=== PATIENT | male | born 1945 | race Caucasian/White ===

== ENCOUNTER 2018-08-20 15:53 | Inpatient (IN) | payer MEDICARE ==
[~2018-08-20] VITALS: Ht 182.9 cm; Wt 67.9 kg
[~2018-08-20 15:53] MED LIST: AMLO-150 PO; AMOX1TAB64 PO; ASCO500C2 PO; ASPI-496 PO; ATOR20TA37 PO; CARB200T4 PO; CLOP75TA PO; DOXY100T PO; FENO134C PO; FERR240T2 PO; FINA5TAB4 PO; LEVE500T8 PO; MAGN400T7 PO; MEMA10TA PO; METO25TA35 PO; POLY17PO5 PO; TAMS-11 PO; THERA; VITA1TAB19 PO
--- NOTE | 2018-08-20 16:40 | NUR ---
pt in room at this time. axox1 to self. cardiac, nibp, and o2 monitoring in place. urine sample at bedside. awaiting md anderson at this time.
[2018-08-20] MEDS ORDERED: SODIUM CHLORIDE FLUSH 10ML SYR IVF ONE (17:00)
[2018-08-20 17:02] LABS: MICROSCOPIC AUTO
[2018-08-20 17:08] LABS: CULTURE INDICATED? NO
[2018-08-20 17:42] LABS: BASOPHILS # (AUTO) 0.01 x10^3/uL (0-0.1); BASOPHILS % (AUTO) 0 % (0-1); EOSINOPHILS % (AUTO) 0 % (1-7); LYMPHOCYTES # (AUTO) 0.51 x10^3/uL (1-3.4); LYMPHOCYTES % (AUTO) 4 % (22-44); MD NO; MEAN CORPUSCULAR HEMOGLOBIN 29.8 pg (27.5-34.5); MEAN CORPUSCULAR HGB CONC 33.5 g/dL (33.2-36.2); MEAN CORPUSCULAR VOLUME 89.1 fL (81-97); MEAN PLATELET VOLUME 7.7 fL (7.4-10.4); MONOCYTES # (AUTO) 0.71 x10^3/uL (0.2-0.8); MONOCYTES % (AUTO) 6 % (2-9); NEUTROPHILS # (AUTO) 11.71 x10^3/uL (1.8-6.8); NEUTROPHILS % (AUTO) 91 % (42-75); PLATELET COUNT 287 x10^3/uL (130-400); RED BLOOD COUNT 4.43 x10^6/uL (4.38-5.82); RED CELL DISTRIBUTION WIDTH 16.3 % (9.4-14.8)
[2018-08-20 17:46] LABS: ALANINE AMINOTRANSFERASE 32 U/L (12-78); ALBUMIN 4.1 g/dL (3.4-5.0); ANION GAP 9 mmol/L (5-15); CALCIUM 8.9 mg/dL (8.5-10.1); CHLORIDE 95 mmol/L (98-107); CREATININE 0.88 mg/dL (0.7-1.3)
[2018-08-20 17:51] LABS: ALKALINE PHOSPHATASE 196 U/L (45-117); BILIRUBIN,TOTAL 0.5 mg/dL (0.2-1.0); T4 (THYROXINE) 8.3 mcg/dL (4.5-12.1); TOTAL PROTEIN 8.6 g/dL (6.4-8.2); TROPONIN I 0.051 ng/mL (0.000-0.045)
[2018-08-20 17:56] LABS: THYROID STIMULATING HORMONE 0.602 mIU/L (0.358-3.740)
--- NOTE | 2018-08-20 18:05 | NUR ---
pt demanding to walk to the restroom and got out of bed dispite advise. pt ambulated to bathroom with 2 person full assist. in restroom pt pulled iv out.iv dc'd tip intact.
[2018-08-20] MEDS ORDERED: ASPIRIN 81 MG TABLET CHEW PO ONE (18:30)
--- NOTE | 2018-08-20 18:36 | NUR ---
TASK RN: POC IS ADMIT. TECH AT BEDSIDE TO PLACE PIV.
[2018-08-20] MEDS ORDERED: ASPIRIN 81 MG TABLET CHEW ONE (18:38)
--- NOTE | 2018-08-20 18:42 | NUR ---
ASA ADMINISTERED PER ORDER. BP/SPO2/ECG MONITORING IN PLACE. NSR ON MONITOR. PT AWAKE/ALERT, FOLLOWS BASIC COMMANDS. PT CALM AND COOPERATIVE WITH CARE.
[2018-08-20] MEDS ORDERED: ONDANSETRON ODT 4 MG PO PRN (20:00)
[2018-08-20] MEDS ORDERED: ACETAMINOPHEN 325 MG TABLET PO PRN (20:00)
[2018-08-20] MEDS ORDERED: BISACODYL 10 MG SUPP PR PRN (20:00)
[2018-08-20] MEDS ORDERED: POLYETHYLENE GLYCOL 17 GM PACKET PO PRN (20:00)
[2018-08-20 21:00] VITALS: BP 150/68
[2018-08-20] MEDS: MAGNESIUM OXIDE 400 MG TABLET PO SCH (22:54)
[2018-08-20] MEDS: LEVETIRACETAM 500 MG TABLET PO SCH (22:54)
[2018-08-20] MEDS: ATORVASTATIN 20 MG TABLET PO SCH (22:54)
[2018-08-20] MEDS: CARBAMAZEPINE 200 MG TABLET PO SCH (22:54)
[2018-08-20] MEDS: SODIUM CHLORIDE 0.9% 1,000 ML IV SCH (22:55)
[2018-08-20 23:41] LABS: TROPONIN I 0.083 ng/mL (0.000-0.045)
[2018-08-21 04:45] LABS: BASOPHILS # (AUTO) 0.03 x10^3/uL (0-0.1); BASOPHILS % (AUTO) 0 % (0-1); EOSINOPHILS # (AUTO) 0.01 x10^3/uL (0-0.4); EOSINOPHILS % (AUTO) 0 % (1-7); LYMPHOCYTES # (AUTO) 0.82 x10^3/uL (1-3.4); LYMPHOCYTES % (AUTO) 10 % (22-44); MD NO; MEAN CORPUSCULAR HEMOGLOBIN 30.1 pg (27.5-34.5); MEAN CORPUSCULAR HGB CONC 33.8 g/dL (33.2-36.2); MEAN CORPUSCULAR VOLUME 89.2 fL (81-97); MEAN PLATELET VOLUME 7.4 fL (7.4-10.4); MONOCYTES # (AUTO) 0.79 x10^3/uL (0.2-0.8); MONOCYTES % (AUTO) 10 % (2-9); NEUTROPHILS # (AUTO) 6.42 x10^3/uL (1.8-6.8); NEUTROPHILS % (AUTO) 80 % (42-75); PLATELET COUNT 228 x10^3/uL (130-400); RED BLOOD COUNT 3.65 x10^6/uL (4.38-5.82); RED CELL DISTRIBUTION WIDTH 16.5 % (9.4-14.8)
[2018-08-21 04:50] LABS: ALANINE AMINOTRANSFERASE 23 U/L (12-78); ALBUMIN 3.1 g/dL (3.4-5.0); ANION GAP 9 mmol/L (5-15); CALCIUM 8.3 mg/dL (8.5-10.1); CHLORIDE 100 mmol/L (98-107); CREATININE 0.74 mg/dL (0.7-1.3)
[2018-08-21 04:54] LABS: ALKALINE PHOSPHATASE 134 U/L (45-117); BILIRUBIN,TOTAL 0.4 mg/dL (0.2-1.0); TOTAL PROTEIN 6.5 g/dL (6.4-8.2); TROPONIN I 0.058 ng/mL (0.000-0.045)
[2018-08-21 05:33] VITALS: BP 148/61
[2018-08-21] MEDS ORDERED: FINASTERIDE 5 MG TABLET ONE (05:52)
[2018-08-21 06:29] VITALS: BP 147/69
[2018-08-21] MEDS: FINASTERIDE 5 MG TABLET PO SCH (06:36)
[2018-08-21] MEDS: SENNA/DOCUSATE TABLET PO SCH (09:00)
[2018-08-21] MEDS: SODIUM CHLORIDE 0.9% 1,000 ML IV SCH ×2 (09:05→21:38)
[2018-08-21] MEDS: TAMSULOSIN 0.4 MG CAP.ER.24H PO SCH (10:37)
[2018-08-21] MEDS: LEVETIRACETAM 500 MG TABLET PO SCH ×2 (10:37→21:35)
[2018-08-21] MEDS: MAGNESIUM OXIDE 400 MG TABLET PO SCH ×2 (10:37→21:35)
[2018-08-21] MEDS: MULTIVITS,STRESS FORMULA 1 TABLET PO SCH (10:37)
[2018-08-21] MEDS: AMLODIPINE 5 MG TABLET PO SCH (10:37)
[2018-08-21] MEDS: MEMANTINE 10MG TABLET PO SCH (10:37)
[2018-08-21] MEDS: CLOPIDOGREL 75 MG TABLET PO SCH (10:37)
[2018-08-21] MEDS: ASPIRIN 81 MG TABLET EC PO SCH (10:37)
[2018-08-21] MEDS: ASCORBIC ACID 500 MG TABLET PO SCH (10:38)
[2018-08-21] MEDS: CARBAMAZEPINE 200 MG TABLET PO SCH ×3 (10:46→21:35)
[2018-08-21 12:42] VITALS: BP 146/63
[2018-08-21 19:55] VITALS: BP 128/55
[2018-08-21] MEDS: ATORVASTATIN 20 MG TABLET PO SCH (21:35)
[2018-08-22 02:00] VITALS: BP 146/68
[2018-08-22 05:48] LABS: BASOPHILS # (AUTO) 0.03 x10^3/uL (0-0.1); BASOPHILS % (AUTO) 1 % (0-1); EOSINOPHILS # (AUTO) 0.17 x10^3/uL (0-0.4); EOSINOPHILS % (AUTO) 4 % (1-7); LYMPHOCYTES # (AUTO) 0.97 x10^3/uL (1-3.4); LYMPHOCYTES % (AUTO) 25 % (22-44); MD NO; MEAN CORPUSCULAR HEMOGLOBIN 30.1 pg (27.5-34.5); MEAN CORPUSCULAR VOLUME 88.6 fL (81-97); MEAN PLATELET VOLUME 7.6 fL (7.4-10.4); MONOCYTES # (AUTO) 0.64 x10^3/uL (0.2-0.8); MONOCYTES % (AUTO) 16 % (2-9); NEUTROPHILS # (AUTO) 2.16 x10^3/uL (1.8-6.8); NEUTROPHILS % (AUTO) 55 % (42-75); PLATELET COUNT 212 x10^3/uL (130-400); RED BLOOD COUNT 3.55 x10^6/uL (4.38-5.82); RED CELL DISTRIBUTION WIDTH 16.5 % (9.4-14.8)
[2018-08-22 05:55] LABS: ANION GAP 8 mmol/L (5-15); CALCIUM 8.1 mg/dL (8.5-10.1); CHLORIDE 104 mmol/L (98-107)
[2018-08-22 05:56] LABS: CREATININE 0.53 mg/dL (0.7-1.3)
[2018-08-22 07:15] VITALS: BP 152/76
[2018-08-22] MEDS: SENNA/DOCUSATE TABLET PO SCH (09:00)
[2018-08-22] MEDS: TAMSULOSIN 0.4 MG CAP.ER.24H PO SCH (11:48)
[2018-08-22] MEDS: MAGNESIUM OXIDE 400 MG TABLET PO SCH ×2 (11:48→20:20)
[2018-08-22] MEDS: FINASTERIDE 5 MG TABLET PO SCH (11:48)
[2018-08-22] MEDS: ASCORBIC ACID 500 MG TABLET PO SCH (11:48)
[2018-08-22] MEDS: ASPIRIN 81 MG TABLET EC PO SCH (11:48)
[2018-08-22] MEDS: MULTIVITS,STRESS FORMULA 1 TABLET PO SCH (11:48)
[2018-08-22] MEDS: CLOPIDOGREL 75 MG TABLET PO SCH (11:49)
[2018-08-22] MEDS: LEVETIRACETAM 500 MG TABLET PO SCH ×2 (11:49→20:20)
[2018-08-22] MEDS: MEMANTINE 10MG TABLET PO SCH (11:49)
[2018-08-22] MEDS: CARBAMAZEPINE 200 MG TABLET PO SCH ×3 (11:49→20:20)
[2018-08-22] MEDS: AMLODIPINE 5 MG TABLET PO SCH (11:50)
[2018-08-22 13:51] VITALS: BP 154/61
[2018-08-22 19:23] VITALS: BP 145/61
[2018-08-22] MEDS: ATORVASTATIN 20 MG TABLET PO SCH (20:20)
[2018-08-23 01:09] VITALS: BP 155/62
[2018-08-23 05:05] LABS: BASOPHILS # (AUTO) 0.03 x10^3/uL (0-0.1); BASOPHILS % (AUTO) 1 % (0-1); EOSINOPHILS # (AUTO) 0.21 x10^3/uL (0-0.4); EOSINOPHILS % (AUTO) 5 % (1-7); LYMPHOCYTES # (AUTO) 0.98 x10^3/uL (1-3.4); LYMPHOCYTES % (AUTO) 24 % (22-44); MD NO; MEAN CORPUSCULAR HEMOGLOBIN 30.3 pg (27.5-34.5); MEAN CORPUSCULAR VOLUME 89.3 fL (81-97); MEAN PLATELET VOLUME 7.7 fL (7.4-10.4); MONOCYTES # (AUTO) 0.46 x10^3/uL (0.2-0.8); MONOCYTES % (AUTO) 11 % (2-9); NEUTROPHILS # (AUTO) 2.36 x10^3/uL (1.8-6.8); NEUTROPHILS % (AUTO) 58 % (42-75); PLATELET COUNT 223 x10^3/uL (130-400); RED BLOOD COUNT 3.51 x10^6/uL (4.38-5.82); RED CELL DISTRIBUTION WIDTH 16.4 % (9.4-14.8)
[2018-08-23 05:12] LABS: ANION GAP 9 mmol/L (5-15); CALCIUM 8.5 mg/dL (8.5-10.1); CHLORIDE 103 mmol/L (98-107)
[2018-08-23 06:43] VITALS: BP 158/62
[2018-08-23] MEDS: SENNA/DOCUSATE TABLET PO SCH (08:08)
[2018-08-23] MEDS: FINASTERIDE 5 MG TABLET PO SCH (09:32)
[2018-08-23] MEDS: ASPIRIN 81 MG TABLET EC PO SCH (09:32)
[2018-08-23] MEDS: AMLODIPINE 5 MG TABLET PO SCH (09:32)
[2018-08-23] MEDS: MULTIVITS,STRESS FORMULA 1 TABLET PO SCH (09:32)
[2018-08-23] MEDS: MAGNESIUM OXIDE 400 MG TABLET PO SCH ×2 (09:32→20:48)
[2018-08-23] MEDS: CARBAMAZEPINE 200 MG TABLET PO SCH ×3 (09:32→20:48)
[2018-08-23] MEDS: LEVETIRACETAM 500 MG TABLET PO SCH ×2 (09:32→20:48)
[2018-08-23] MEDS: MEMANTINE 10MG TABLET PO SCH (09:32)
[2018-08-23] MEDS: ASCORBIC ACID 500 MG TABLET PO SCH (09:32)
[2018-08-23] MEDS: CLOPIDOGREL 75 MG TABLET PO SCH (09:32)
[2018-08-23] MEDS: TAMSULOSIN 0.4 MG CAP.ER.24H PO SCH (09:32)
[2018-08-23 12:00] VITALS: BP 144/68
[2018-08-23 18:43] VITALS: BP 124/62
[2018-08-23] MEDS: ATORVASTATIN 20 MG TABLET PO SCH (20:49)
[2018-08-24 00:29] VITALS: BP 118/57
[2018-08-24 05:05] LABS: BASOPHILS # (AUTO) 0.04 x10^3/uL (0-0.1); BASOPHILS % (AUTO) 1 % (0-1); EOSINOPHILS # (AUTO) 0.33 x10^3/uL (0-0.4); EOSINOPHILS % (AUTO) 8 % (1-7); LYMPHOCYTES # (AUTO) 0.95 x10^3/uL (1-3.4); LYMPHOCYTES % (AUTO) 22 % (22-44); MD NO; MEAN CORPUSCULAR HEMOGLOBIN 29.1 pg (27.5-34.5); MEAN CORPUSCULAR VOLUME 88.2 fL (81-97); MEAN PLATELET VOLUME 7.2 fL (7.4-10.4); MONOCYTES # (AUTO) 0.43 x10^3/uL (0.2-0.8); MONOCYTES % (AUTO) 10 % (2-9); NEUTROPHILS % (AUTO) 60 % (42-75); PLATELET COUNT 255 x10^3/uL (130-400); RED BLOOD COUNT 3.61 x10^6/uL (4.38-5.82); RED CELL DISTRIBUTION WIDTH 16.3 % (9.4-14.8)
[2018-08-24 05:14] LABS: % IRON SATURATION 26 % (20-55); ANION GAP 7 mmol/L (5-15); CALCIUM 8.3 mg/dL (8.5-10.1); CHLORIDE 102 mmol/L (98-107); CREATININE 0.55 mg/dL (0.7-1.3); IRON LEVEL 45 mcg/dL (65-175); TOTAL IRON BINDING CAPACITY 170 mcg/dL (250-450)
[2018-08-24 06:30] VITALS: BP 155/68
[2018-08-24] MEDS: LEVETIRACETAM 500 MG TABLET PO SCH ×2 (09:49→20:59)
[2018-08-24] MEDS: ASPIRIN 81 MG TABLET EC PO SCH (09:49)
[2018-08-24] MEDS: SENNA/DOCUSATE TABLET PO SCH (09:50)
[2018-08-24] MEDS: FINASTERIDE 5 MG TABLET PO SCH (09:50)
[2018-08-24] MEDS: MULTIVITS,STRESS FORMULA 1 TABLET PO SCH (09:50)
[2018-08-24] MEDS: MAGNESIUM OXIDE 400 MG TABLET PO SCH ×2 (09:50→21:00)
[2018-08-24] MEDS: AMLODIPINE 5 MG TABLET PO SCH (09:50)
[2018-08-24] MEDS: CARBAMAZEPINE 200 MG TABLET PO SCH ×3 (09:50→20:59)
[2018-08-24] MEDS: TAMSULOSIN 0.4 MG CAP.ER.24H PO SCH (09:50)
[2018-08-24] MEDS: ASCORBIC ACID 500 MG TABLET PO SCH (09:50)
[2018-08-24] MEDS: MEMANTINE 10MG TABLET PO SCH (09:51)
[2018-08-24] MEDS: CLOPIDOGREL 75 MG TABLET PO SCH (09:51)
[2018-08-24 12:00] VITALS: BP 169/74
[2018-08-24 19:33] VITALS: BP 137/60
[2018-08-24] MEDS: ATORVASTATIN 20 MG TABLET PO SCH (20:59)
[2018-08-25 00:32] VITALS: BP 129/56
[2018-08-25 07:06] VITALS: BP 163/76
[2018-08-25] MEDS: SENNA/DOCUSATE TABLET PO SCH (10:03)
[2018-08-25] MEDS: FINASTERIDE 5 MG TABLET PO SCH (10:04)
[2018-08-25] MEDS: LEVETIRACETAM 500 MG TABLET PO SCH (10:04)
[2018-08-25] MEDS: ASPIRIN 81 MG TABLET EC PO SCH (10:04)
[2018-08-25] MEDS: MEMANTINE 10MG TABLET PO SCH (10:04)
[2018-08-25] MEDS: CLOPIDOGREL 75 MG TABLET PO SCH (10:04)
[2018-08-25] MEDS: ASCORBIC ACID 500 MG TABLET PO SCH (10:04)
[2018-08-25] MEDS: CARBAMAZEPINE 200 MG TABLET PO SCH (10:04)
[2018-08-25] MEDS: MULTIVITS,STRESS FORMULA 1 TABLET PO SCH (10:04)
[2018-08-25] MEDS: AMLODIPINE 5 MG TABLET PO SCH (10:05)
[2018-08-25] MEDS: TAMSULOSIN 0.4 MG CAP.ER.24H PO SCH (10:05)
[2018-08-25] MEDS: MAGNESIUM OXIDE 400 MG TABLET PO SCH (10:19)
[2018-08-25] MEDS ORDERED: REGADENOSON 0.4 MG/5 ML SYRINGE ONE (11:59)
[2018-08-25 13:00] VITALS: BP 162/79
[2018-08-25] MEDS ORDERED: METOPROLOL TARTRATE 25 MG TABLET PO SCH (18:00)
== END 2018-08-25 16:02 | disposition home health service (06) | DRG 641 ==
LOC: ED 18:16 → EDIP 18:29 → 5SO 20:35 → 3NE 08-22 13:50
PROVIDERS: ADMIT Internal Medicine; ATTEND Internal Medicine
DX: E87.1 Hypo-osmolality and hyponatremia (principal); R65.10 Systemic inflammatory response syndrome (SIRS) of non-infectious origin without acute organ dysfunction; E44.0 Moderate protein-calorie malnutrition; I24.8 Other forms of acute ischemic heart disease; N40.1 Benign prostatic hyperplasia with lower urinary tract symptoms; R33.8 Other retention of urine; Z66 Do not resuscitate; R26.2 Difficulty in walking, not elsewhere classified; F02.80 Dementia in other diseases classified elsewhere, unspecified severity, without behavioral disturbance, psychotic disturbance, mood disturbance, and anxiety; S81.812A Laceration without foreign body, left lower leg, initial encounter; G40.909 Epilepsy, unspecified, not intractable, without status epilepticus; G30.9 Alzheimer's disease, unspecified; I25.10 Atherosclerotic heart disease of native coronary artery without angina pectoris; E78.5 Hyperlipidemia, unspecified; I10 Essential (primary) hypertension; Z86.73 Personal history of transient ischemic attack (TIA), and cerebral infarction without residual deficits; Z82.3 Family history of stroke
CPT/HCPCS: 36415; 71045; 78452; 80048; 80053; 80156; 81001; 83540; 83550; 83605; 83735; 84436; 84443; 84484; 85025; 87040; 93005; 99285; G0378; J2785; A9502; C9898; J7030